=== PATIENT | female | born 1965 | race Two or more races ===

== ENCOUNTER 2016-09-15 14:23 | Emergency (ER) | payer MEDICAID ==
[2016-09-15 14:48] VITALS: BP 170/101; TEMP 98.4; O2SAT 96
--- NOTE | 2016-09-15 16:03 | EDPHY ---
H & P Time Seen by Provider: 09/15/16 15:45 HPI/ROS: CHIEF COMPLAINT: Right eye irritation HISTORY OF PRESENT ILLNESS: 51-year-old female presents to the emergency department with irritation to her right eye. The patient noted mattering and discharge from her right eye just this morning. 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 She denies visual changes. Denies symptoms in the left eye. Denies URI symptoms. ROS: Denies double vision, blurry vision, foreign body sensation. Past Medical/Surgical History: Hypertension, fibroids Social History: Divorce and lives in [place] Smoking Status: Light smoker Physical Exam: On examination the patient has mild conjunctival injection noted to the right eye. She has an internal or ill noted at the right inferior lateral lower eyelid. No evidence of retained foreign body. Pupils are equal and round and reactive. There is minimal swelling to the right inferior eyelid. There is no surrounding redness or anything to suggest periorbital cellulitis. No pain with palpation over the globe. No palpable bony tenderness. Constitutional: Initial Vital Signs Temperature (C) 36.9 C 09/15/16 14:45 Heart Rate 114 H 09/15/16 14:45 Respiratory Rate 16 09/15/16 14:45 Blood Pressure 170/101 H 09/15/16 14:45 O2 Sat (%) 96 09/15/16 14:45 O2 Delivery Mode Room Air Allergies/Adverse Reactions: No Known Allergies Allergy (Verified 01/21/16 13:09) Home Medications: Medication Instructions Recorded Lisinopril 01/21/16 Gentamicin 0.3% [Gentak 0.3% Opht 0.5 inch RTEYE TID #0 opht.oint 09/15/16 Oint] MDM/Departure - [facility] ED Course/Re-evaluation: Clinically I think this patient has internal hordeolum of the right eye. I do not think slit-lamp examination is warranted. Patient was treated with gentamicin ophthalmic ointment and warm compresses. She was encouraged to return or follow up with master hearth technician on-call if she developed any visual changes, increased swelling or redness, fever, or any other concerns. She was comfortable with this plan. - Depart Disposition: Home, Routine, Self-Care Clinical Impression: Hordeolum of lower eyelid Condition: Good Instructions: Rony (ED) Additional Instructions: Warm compresses. Gentamycin ophthalmic ointment apply to right eye 3 times daily for 1 week. Good hand washing as discussed. Return if he developed any visual changes or any other concerns. Prescriptions: Gentamicin 0.3% [Gentak 0.3% Opht Oint] 0.5 inch RTEYE TID #0 opht.oint Referrals: Nadeen Macario MD [Primary Care Provider] - As per Instructions Rene Oconnor MD [Medical Doctor] - 2-3 days, if not improved ( [employer] on-call)
[2016-09-15 16:14] VITALS: PULSE 66; RESP 18
== END 2016-09-15 16:11 | disposition home or self-care (01) ==
DX: H00.012 Hordeolum externum right lower eyelid (principal); I10 Essential (primary) hypertension; F17.200 Nicotine dependence, unspecified, uncomplicated

== ENCOUNTER 2017-01-26 17:28 | Emergency (ER) | payer MEDICAID ==
--- NOTE | 2017-01-26 17:56 | EDPHY ---
H & P Stated Complaint: Bruising to right arm, first noticed Thursday morning. Time Seen by Provider: 01/26/17 17:46 HPI/ROS: CHIEF COMPLAINT: Bruising HISTORY OF PRESENT ILLNESS: Patient is a 51-year-old healthy female who comes to the emergency department complaining of a spontaneous bruise to her right forearm. She 1st noticed it when she woke up 2 days ago. She denies any coagulopathies. She is not on any medications other than losartan. She thought maybe she got bit by a spider. No erythema or swelling. She has not had any other bruises. No joint pain or swelling. She did get a flu shot 1 week ago in her left shoulder. No Procedures or IV's on her right arm. REVIEW OF SYSTEMS: Constitutional: denies: chills, fever, recent illness, recent injury EENTM: denies: blurred vision, double vision, nose congestion Respiratory: denies: cough, shortness of breath Cardiac: denies: chest pain, irregular heart rate, lightheadedness, palpitations Gastrointestinal/Abdominal: denies: abdominal pain, diarrhea, nausea, vomiting, blood streaked stools Genitourinary: denies: dysuria, frequency, hematuria, pain Musculoskeletal: denies: joint pain, muscle pain Skin: See HPI Neurological: denies: headache, numbness, paresthesia, tingling, dizziness, weakness Hematologic/Lymphatic: denies: blood clots, easy bleeding, easy bruising Immunologic/allergic: denies: HIV/AIDS, transplant EXAM: GENERAL: Well-appearing, well-nourished and in no acute distress. HEAD: Atraumatic, normocephalic. EYES: Pupils equal round and reactive to light, extraocular movements intact, sclera anicteric, conjunctiva are normal. ENT: TMs normal, nares patent, oropharynx clear without exudates. Moist mucous membranes. NECK: Normal range of motion, supple without lymphadenopathy or JVD. LUNGS: Breath sounds clear to auscultation bilaterally and equal. No wheezes rales or rhonchi. HEART: Regular rate and rhythm without murmurs, rubs or gallops. ABDOMEN: Soft, nontender, normoactive bowel sounds. No guarding, no rebound. No masses appreciated. BACK: No CVA tenderness, no spinal tenderness, step-offs or deformities EXTREMITIES: Normal range of motion, no pitting or edema. No clubbing or cyanosis. NEUROLOGICAL: Cranial nerves II through XII grossly intact. Normal speech, normal gait. 5/5 strength, normal movement in all extremities, normal sensation PSYCH: Normal mood, normal affect. SKIN: Large dark bruise to right forearm over palmar aspect slightly wrapping over to the dorsal aspect. Does not involve elbow wrist or hand. No tenderness or deformity. No erythema or drainage. Source: Patient Exam Limitations: No limitations - Personal History Current Tetanus Diphtheria and Acellular Pertussis (TDAP): Yes - Medical/Surgical History Hx Asthma: No Hx Chronic Respiratory Disease: No Hx Diabetes: No Hx Cardiac Disease: No Hx Renal Disease: No Hx Cirrhosis: No Hx Alcoholism: No Hx HIV/AIDS: No Hx Splenectomy or Spleen Trauma: No Other PMH: pmh:fibroid, htn. psh: - Family History Significant Family History: No pertinent family hx - Social History Smoking Status: Light smoker Alcohol Use: Sober Drug Use: None Constitutional: Initial Vital Signs Temperature (C) 36.6 C 01/26/17 17:28 Heart Rate 115 H 01/26/17 17:28 Respiratory Rate 18 01/26/17 17:28 Blood Pressure 137/90 H 01/26/17 17:28 O2 Sat (%) 97 01/26/17 17:28 O2 Delivery Mode Room Air Allergies/Adverse Reactions: No Known Allergies Allergy (Verified 01/21/16 13:09) Home Medications: Medication Instructions Recorded Lisinopril 01/21/16 Gentamicin 0.3% [Gentak 0.3% Opht 0.5 inch RTEYE TID #0 opht.oint 09/15/16 Oint] Medical Decision Making ED Course/Re-evaluation: 7:10 p.m. we discussed the lab results which are reassuring. Patient is eager to go home. I advised her to follow up with Hematology further testing especially of her bruise progresses or she has more bruising. She understands and agrees with this plan. She declines further workup or testing at this time. Differential Diagnosis: Partial list of the Differential diagnosis considered include but were not limited to; contusion, bleeding disorder, anemia and although unlikely based on the history and physical exam, I also considered trauma, infection, snake bite, DVT, ischemia, dissection, aneurysm. I discussed these differential diagnoses and the plan with the patient as well as the usual and expected course. The patient understands that the diagnosis is provisional and that in medicine we are not always correct and that further workup is often warranted. Usual and customary warnings were given. All of the patient's questions were answered. The patient was instructed to return to the emergency department should the symptoms at all worsen or return, otherwise to followup with the physician as we discussed. - Data Points Laboratory Results: Laboratory Results 01/26/17 18:17 01/26/17 18:17 01/26/17 01/26/17 01/26/17 18:17 18:17 18:17 WBC 7.03 10^3/uL 10^3/uL (3.80-9.50) RBC 3.93 10^6/uL L 10^6/uL (4.18-5.33) Hgb 14.4 g/dL g/dL (12.6-16.3) Hct 41.0 % % (38.0-47.0) MCV 104.3 fL H fL (81.5-99.8) MCH 36.6 pg H pg (27.9-34.1) MCHC 35.1 g/dL g/dL (32.4-36.7) RDW 13.7 % % (11.5-15.2) Plt Count 223 10^3/uL 10^3/uL (150-400) MPV 8.9 fL fL (8.7-11.7) Neut % (Auto) 68.4 % % (39.3-74.2) Lymph % (Auto) 23.5 % % (15.0-45.0) Garden % (Auto) 5.8 % % (4.5-13.0) Eos % (Auto) 1.6 % % (0.6-7.6) Baso % (Auto) 0.4 % % (0.3-1.7) Nucleat RBC Rel Count 0.0 % % (0.0-0.2) Absolute Neuts (auto) 4.81 10^3/uL 10^3/uL (1.70-6.50) Absolute Lymphs (auto) 1.65 10^3/uL 10^3/uL (1.00-3.00) Absolute Monos (auto) 0.41 10^3/uL 10^3/uL (0.30-0.80) Absolute Eos (auto) 0.11 10^3/uL 10^3/uL (0.03-0.40) Absolute Basos (auto) 0.03 10^3/uL 10^3/uL (0.02-0.10) Absolute Nucleated RBC 0.00 10^3/uL 10^3/uL (0-0.01) Immature Gran % 0.3 % % (0.0-1.1) Immature Gran # 0.02 10^3/uL 10^3/uL (0.00-0.10) PT 12.9 SEC SEC (12.0-15.0) INR 0.98 (0.83-1.16) APTT 24.6 SEC SEC (23.0-38.0) Sodium 139 mEq/L mEq/L (134-144) Potassium 3.6 mEq/L mEq/L (3.5-5.2) Chloride 98 mEq/L mEq/L (97-110) Carbon Dioxide 27 mEq/l mEq/l (22-31) Anion Gap 14 mEq/L mEq/L (8-16) BUN 14 mg/dL mg/dL (7-23) Creatinine 0.6 mg/dL mg/dL (0.6-1.0) Estimated GFR > 60 Glucose 155 mg/dL H mg/dL (70-100) Calcium 9.8 mg/dL mg/dL (8.5-10.4) Departure - Departure Disposition: Home, Routine, Self-Care Clinical Impression: Bruising Condition: Fair Instructions: Contusion in Adults (ED) Referrals: Nadeen Macario MD [Primary Care Provider] - As per Instructions
[2017-01-26 18:28] LABS: % IMMATURE GRANULYOCYTES 0.3 % (0.0-1.1); ABSOLUTE IMMATURE GRANULOCYTES 0.02 10^3/uL (0.00-0.10); ADD DIFF? NO; ADD MORPH? NO; ADD SCAN? NO; ATYPICAL LYMPHOCYTE FLAG 0 (0-99); FRAGMENT RBC FLAG 0 (0-99); HEMOGLOBIN 14.4 g/dL (12.6-16.3); LEFT SHIFT FLG 0 (0-99); LIPEMIA HEMOLYSIS FLAG 90 (0-99); MEAN CELL HEMOGLOBIN 36.6 pg (27.9-34.1); MEAN CELL HEMOGLOBIN CONCENTR. 35.1 g/dL (32.4-36.7); MEAN CELL VOLUME 104.3 fL (81.5-99.8); MEAN PLATELET VOLUME 8.9 fL (8.7-11.7); PLATELET CLUMPS FLAG 0 (0-99); PLATELET COUNT 223 10^3/uL (150-400); RED BLOOD CELL COUNT 3.93 10^6/uL (4.18-5.33); RED CELL DISTRIBUTION WIDTH 13.7 % (11.5-15.2)
[2017-01-26 18:38] LABS: INR 0.98 (0.83-1.16); PROTIME(PATIENT) 12.9 SEC (12.0-15.0)
[2017-01-26 18:39] LABS: APTT 24.6 SEC (23.0-38.0)
[2017-01-26 18:45] LABS: ANION GAP 14 mEq/L (8-16); CALCIUM 9.8 mg/dL (8.5-10.4); CARBON DIOXIDE 27 mEq/l (22-31); CHLORIDE 98 mEq/L (97-110); CREATININE 0.6 mg/dL (0.6-1.0); GLOMERULAR FILTRATION RATE > 60; GLUCOSE 155 mg/dL (70-100); POTASSIUM 3.6 mEq/L (3.5-5.2); SODIUM 139 mEq/L (134-144)
[2017-01-26 19:43] VITALS: BP 138/103; PULSE 108; RESP 16; TEMP 98.8; O2SAT 94
== END 2017-01-26 19:41 | disposition home or self-care (01) ==
DX: M79.81 Nontraumatic hematoma of soft tissue (principal); F17.200 Nicotine dependence, unspecified, uncomplicated; I10 Essential (primary) hypertension

== ENCOUNTER 2017-04-23 19:54 | Emergency (ER) | payer MEDICAID ==
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
[2017-04-23 20:31] VITALS: BP 144/74; PULSE 88; RESP 20; O2SAT 100
== END 2017-04-23 20:35 ==
LOC: EDUNIT#
DX: F10.921 Alcohol use, unspecified with intoxication delirium (principal); F91.9 Conduct disorder, unspecified; F17.200 Nicotine dependence, unspecified, uncomplicated

== ENCOUNTER 2017-04-27 19:29 | Emergency (ER) | payer MEDICAID ==
[2017-04-27 19:33] VITALS: O2SAT 97
--- NOTE | 2017-04-27 20:32 | EDPHY ---
HPI/HX/ROS/PE/MDM Narrative: CHIEF COMPLAINT: Rash HISTORY OF PRESENT ILLNESS: This patient is a 51 year old female complaining of a full body rash onset yesterday. evening, she spent the evening in fdc, and returned home Thursday evening. Thursday, she noted small mildly itchy bumps all over her body. Today, she developed additional bumps around her buttocks which are painful. Additionally, she woke today with a sore left eye. Her right eye began hurting around 3pm as well, and she is concerned regarding pinkeye. She is also concerned she may have contracted an infection or infestation from the bedding the fdc. No fever chills, chest pain, shortness of breath, palpitations, vomiting, diarrhea, urinary complaints, headache, lightheadedness. REVIEW OF SYSTEMS: Aside from elements discussed in the HPI, a comprehensive 10-point review of systems was reviewed and is negative. PAST MEDICAL HISTORY: Hypertension. SOCIAL HISTORY: Lives in [place]. Works for [employer]. PCP Dr. Macario. VITAL SIGNS: Reviewed by me GENERAL: Well-developed, well-nourished, resting comfortably in no respiratory distress. HEENT: Atraumatic. Eyes: Stye on lower left eyelid. No icterus, no injection. Mouth: moist mucous membranes. No erythema or lesions. Neck: supple with no adenopathy. LUNGS: Clear to auscultation bilaterally, no wheezes, rhonchi or rales. CARDIAC: Regular rate and rhythm, no rubs, murmurs or gallops. ABDOMEN: Soft, nontender, nondistended, bowel sounds normal. BACK: No CVA tenderness. EXTREMITIES: No trauma. No edema. Range of motion is normal throughout. NEURO: Alert and oriented, grossly nonfocal. SKIN: Scattered papular, small, discrete eruption. No linear excoriations. No purulent or pustular lesions. Lesions are on trunk, buttocks, and neck. No intertriginous lesions. Skin is warm and dry, no petechiae. PSYCHIATRIC: Normal mentation, no agitation. Portions of this note were transcribed by a medical planner. I personally performed a history, physical exam, medical decision making, and confirmed accuracy of information the transcribed note. ED Course: 51 y/o female presents with a scattered maculopapular rash on trunk, buttocks, and neck. Patient's concern is may represent scabies. She does not have classic linear excoriations and the rash is not particularly itchy, however, she does report spending the night in an environment which may have had scabies. I will have the patient use a scabies cream and if this does not improve the rash will place her on Keflex for folliculitis. Rash does not appear to be bed bugs to me. Patient was also instructed on warm compresses a given ofloxacin for the treatment of her lower eyelid stye. Follow up and return precautions discussed. She is comfortable with this plan. MDM: Differential diagnosis of the patient's rash was considered including but not limited to allergic reaction, urticaria, viral exanthem, scabies, folliculitis, petechial rash, cellulitis. General Time Seen by Provider: 04/27/17 20:17 Initial Vital Signs: Initial Vital Signs Temperature (C) 36.8 C 04/27/17 19:32 Heart Rate 108 H 04/27/17 19:32 Respiratory Rate 16 04/27/17 19:32 Blood Pressure 181/110 H 04/27/17 19:32 O2 Sat (%) 97 04/27/17 19:32 O2 Delivery Mode Room Air Allergies/Adverse Reactions: No Known Allergies Allergy (Verified 04/23/17 20:29) Home Medications: Medication Instructions Recorded Cephalexin [Keflex (*)] 500 mg PO QID 7 Days cap 04/27/17 Permethrin 5% [Elimite 5%] 60 gm TP ONCE 1 Days cream 04/27/17 Departure - Departure Disposition: Home, Routine, Self-Care Clinical Impression: Rash Condition: Good Instructions: Ofloxacin (Into the eye), Acute Rash (ED) Additional Instructions: 1. Wash all of your clothing and bedding on the hottest setting. 2. Use Elemite as directed. If your symptoms do not resolve with this, take Keflex as prescribed. 3. Return to the emergency department for fever, worsening pain, changes in vision, or other worsening of condition. 4. Follow up with your primary care provider this week for further evaluation. 5. Take Benadryl as directed on the packaging as needed for itching. 6. Use the eyedrops as recommended. 7. Warm compresses to the left eye will also help the sty resolve sooner. Referrals: Nadeen Macario MD [Primary Care Provider] - As per Instructions Prescriptions: Cephalexin [Keflex (*)] 500 mg PO QID 7 Days cap Permethrin 5% [Elimite 5%] 60 gm TP ONCE 1 Days cream Report Scribed for: Doris Patterson Report Scribed by: Lizzy Cee Date of Report: 04/27/17 Time of Report: 20:33
[2017-04-27] MEDS ORDERED: OFLOXACIN 0.3% SOLN PREPACK OPHT.BTL TAKEHOME ONE ×2 (20:52→20:53)
[2017-04-27 20:55] VITALS: BP 158/98; PULSE 100; RESP 18; TEMP 98.6
== END 2017-04-27 20:55 | disposition home or self-care (01) ==
DX: R21 Rash and other nonspecific skin eruption (principal); I10 Essential (primary) hypertension

== ENCOUNTER 2017-07-23 18:17 | Emergency (ER) | payer MEDICAID ==
[2017-07-23] MEDS ORDERED: NS 1,000 ML IV ONE ×2 (19:04)
[2017-07-23] MEDS ORDERED: ONDANSETRON 4 MG/2 ML VIAL IVP ONE (19:04)
--- NOTE | 2017-07-23 19:06 | EDPHY ---
H & P Stated Complaint: NAUSEA /DIARRHEA X 2 DAYS (WAS ABLE TO WORK TODAY) Time Seen by Provider: 07/23/17 18:57 HPI/ROS: CHIEF COMPLAINT: Nausea, diarrhea HISTORY OF PRESENT ILLNESS: Patient is a 51-year-old female who comes to the emergency department complaining of nausea but no vomiting and diarrhea nonbloody for the last 4 days. No travel. No fever. She states that she did not go to work Thursday or Thursday but did go to work today. 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 She states that she now feels tired and dehydrated. She denies . No history of abdominal surgery. No abdominal pain. REVIEW OF SYSTEMS: Constitutional: denies: chills, fever, recent illness, recent injury EENTM: denies: blurred vision, double vision, nose congestion Respiratory: denies: cough, shortness of breath Cardiac: denies: chest pain, irregular heart rate, lightheadedness, palpitations Gastrointestinal/Abdominal: See HPI Genitourinary: denies: dysuria, frequency, hematuria, pain Musculoskeletal: denies: joint pain, muscle pain Skin: denies: lesions, rash, jaundice, bruising Neurological: denies: headache, numbness, paresthesia, tingling, dizziness, weakness Hematologic/Lymphatic: denies: blood clots, easy bleeding, easy bruising Immunologic/allergic: denies: HIV/AIDS, transplant EXAM: GENERAL: Well-appearing, well-nourished and in no acute distress. HEAD: Atraumatic, normocephalic. EYES: Pupils equal round and reactive to light, extraocular movements intact, sclera anicteric, conjunctiva are normal. ENT: TMs normal, nares patent, oropharynx clear without exudates. Moist mucous membranes. NECK: Normal range of motion, supple without lymphadenopathy or JVD. LUNGS: Breath sounds clear to auscultation bilaterally and equal. No wheezes rales or rhonchi. HEART: Regular rate and rhythm without murmurs, rubs or gallops. ABDOMEN: Soft, nontender, normoactive bowel sounds. No guarding, no rebound. No masses appreciated. BACK: No CVA tenderness, no spinal tenderness, step-offs or deformities EXTREMITIES: Normal range of motion, no pitting or edema. No clubbing or cyanosis. NEUROLOGICAL: Cranial nerves II through XII grossly intact. Normal speech, normal gait. 5/5 strength, normal movement in all extremities, normal sensation PSYCH: Normal mood, normal affect. SKIN: Warm, dry, normal turgor, no visible rashes or lesions. Source: Patient Exam Limitations: No limitations - Personal History LMP (Females 10-55): Irregular Current Tetanus/Diphtheria Vaccine: Yes - Medical/Surgical History Hx Asthma: No Hx Chronic Respiratory Disease: No Hx Diabetes: No Hx Cardiac Disease: No Hx Renal Disease: No Hx Cirrhosis: No Hx Alcoholism: No Hx HIV/AIDS: No Hx Splenectomy or Spleen Trauma: No Other PMH: pmh:fibroid, htn. psh: - Family History Significant Family History: No pertinent family hx - Social History Smoking Status: Light smoker Alcohol Use: Sober Drug Use: None Constitutional: Initial Vital Signs Temperature (C) 36.8 C 07/23/17 18:20 Heart Rate 96 07/23/17 18:20 Respiratory Rate 18 07/23/17 18:20 Blood Pressure 142/115 H 07/23/17 18:20 O2 Sat (%) 96 07/23/17 18:20 O2 Delivery Mode Room Air Allergies/Adverse Reactions: No Known Allergies Allergy (Verified 07/23/17 18:19) Home Medications: Medication Instructions Recorded Lisinopril 07/23/17 Medical Decision Making ED Course/Re-evaluation: 7:50 p.m. patient is doing well. Her nausea is resolved. She is receiving IV fluids. Abdominal exam remains benign. 8:30 p.m. the patient continues to do well. Her abdominal exam is benign. Fluids arm was done. She is eager to go. Differential Diagnosis: Partial list of the Differential diagnosis considered include but were not limited to; gastroenteritis, dehydration, food poisoning and although unlikely based on the history and physical exam, I also considered appendicitis, biliary disease, torsion, urinary tract infection, cyst. I discussed these differential diagnoses and the plan with the patient as well as the usual and expected course. The patient understands that the diagnosis is provisional and that in medicine we are not always correct and that further workup is often warranted. Usual and customary warnings were given. All of the patient's questions were answered. The patient was instructed to return to the emergency department should the symptoms at all worsen or return, otherwise to followup with the physician as we discussed. - Data Points Medications Given: Discontinued Medications Sodium Chloride (Ns) 1,000 mls @ 0 mls/hr IV EDNOW ONE; Wide Open PRN Reason: Protocol Stop: 07/23/17 19:05 Last Admin: 07/23/17 19:14 Dose: 1,000 mls Sodium Chloride (Ns) 1,000 mls @ 0 mls/hr IV EDNOW ONE; Wide Open PRN Reason: Protocol Stop: 07/23/17 19:05 Last Admin: 07/23/17 19:19 Dose: 1,000 mls Ondansetron HCl (Zofran) 4 mg IVP EDNOW ONE Stop: 07/23/17 19:05 Last Admin: 07/23/17 19:15 Dose: 4 mg Departure - Departure Disposition: Home, Routine, Self-Care Clinical Impression: Acute gastroenteritis, Dehydration Condition: Fair Instructions: Dehydration (ED), Gastroenteritis (ED) Referrals: Nadeen Macario MD [Primary Care Provider] - As per Instructions
[2017-07-23 20:49] VITALS: BP 149/80
== END 2017-07-23 20:57 | disposition home or self-care (01) ==
DX: K52.9 Noninfective gastroenteritis and colitis, unspecified (principal); E86.0 Dehydration; E86.9 Volume depletion, unspecified; F17.200 Nicotine dependence, unspecified, uncomplicated; I10 Essential (primary) hypertension
CPT/HCPCS: 96374; J2405

== ENCOUNTER 2017-08-28 08:54 | Emergency (ER) | payer MEDICAID ==
--- NOTE | 2017-08-28 09:22 | EDPHY ---
H & P Time Seen by Provider: 08/28/17 09:11 HPI/ROS: CHIEF COMPLAINT: Recurrent cyst right axilla HISTORY OF PRESENT ILLNESS: 51-year-old immunocompetent female history of recurrent sebaceous cyst in the right axilla that has become recently erythematous tender and fluctuant. She has had previous incision and drainage of this. No fever no chills no nausea no vomiting. Tetanus up-to-date. PHYSICAL EXAM (Prior to examination, patient consented to physical exam, hands were washed and my usual and customary physical exam procedures followed) 1) GENERAL: Well-developed, well-nourished, alert and oriented. Appears to be in no acute distress. 2) HEAD: Normocephalic 3) HEENT: sclera anicteric 4) LUNGS: Breathing comfortably. 5) SKIN: Right axilla: Patient has in erythematous indurated fluctuant mass consistent with infected sebaceous cyst in abscess. 6) MUSCULOSKELETAL: Soft compartments no erythema no crepitus. Smoking Status: Light smoker Constitutional: Initial Vital Signs Temperature (C) 36.5 C 08/28/17 08:56 Heart Rate 93 08/28/17 08:56 Respiratory Rate 17 08/28/17 08:56 Blood Pressure 146/102 H 08/28/17 08:56 O2 Sat (%) 97 08/28/17 08:56 O2 Delivery Mode Room Air Allergies/Adverse Reactions: No Known Allergies Allergy (Verified 08/28/17 08:55) Home Medications: Medication Instructions Recorded Lisinopril 07/23/17 Cephalexin [Keflex] 500 mg PO TID 10 Days cap 08/28/17 Ibuprofen [Motrin (*)] 800 mg PO Q6 #15 tab 08/28/17 MDM/Departure - MDM Procedures: Procedure: Abscess drainage. The patient's abscess was located on the right axilla. I obtained verbal consent from the patient to drain the abscess who was informed about the possibility of bleeding and pain. The abscess was incised with a 15. scalpel and a moderate amount of purulent drainage and sebum was expressed. I irrigated the wound and placed some packing. The patient tolerated the procedure well. The procedure was performed by myself. ED Course/Re-evaluation: Care of patient under supervision of secondary supervising physician Dr Snyder . This patient has infected sebaceous cyst which was incised and drained in the ER. She notes that this has been a recurrent issue. At this time incision drainage performed, started on antibiotics, monotherapy with Keflex as she has no history of MRSA. Recommend follow up with primary care provider and also given general surgery information for long-term therapy.. - Depart Disposition: Home, Routine, Self-Care Clinical Impression: Infected sebaceous cyst of skin Condition: Good Instructions: Cyst (ED) Additional Instructions: Return to the ER if you develop redness, swelling, discharge, warmth to the wound, fevers, or any other symptoms that concern you. Prescriptions: Cephalexin [Keflex] 500 mg PO TID 10 Days cap Ibuprofen [Motrin (*)] 800 mg PO Q6 #15 tab Referrals: Nadeen Macario MD [Primary Care Provider] - 2-3 days, call for appt. Trip Prado MD [Medical Doctor] - 5-7 days, call for appt. (Dr. Prado is a general surgeon)
[2017-08-28 09:42] VITALS: BP 153/106
== END 2017-08-28 09:41 | disposition home or self-care (01) ==
PROC: 0H9BXZZ Drainage of Right Upper Arm Skin, External Approach (ICD-10-PCS; principal; 2017-08-28)
DX: L72.3 Sebaceous cyst (principal); F17.200 Nicotine dependence, unspecified, uncomplicated

== ENCOUNTER 2018-02-08 19:37 | Emergency (ER) | payer MEDICAID ==
[2018-02-08] MEDS ORDERED: IBUPROFEN 600 MG TAB PO ONE (20:27)
--- NOTE | 2018-02-08 21:02 | EDPHY ---
General - History Smoking Status: Former smoker Time Seen by Provider: 02/08/18 20:34 Narrative: CHIEF COMPLAINT: Fall, knee pain, clavicle pain HISTORY OF PRESENT ILLNESS: Patient presents with complaints of left knee and right clavicle pain after fall. She states that she was running for the bus earlier this afternoon when she tripped and fell. She states she landed on both of her knees and on outward stretched right hand. She complains of moderate to severe pain in the left knee, mild pain in the right knee, and [id number] pain in the right clavicle. She states that she has abrasions that are non concerning on both knees. Pain in the right clavicle is worse palpation movement. It is an area that she has injury to the past and she feels as though it may be no chest pain. No shortness of breath. No difficulty breathing. No head, neck, back or abdominal injuries. Tetanus is up-to-date. The pain left knees with palpation and movement. Does not radiate. No numbness tingling. No weakness. No other associated complaints or modifying factors. ESTABLISHED ORTHOPEDIST: None REVIEW OF SYSTEMS: Ten systems reviewed and are negative unless otherwise noted in the HPI PAST MEDICAL HISTORY: Hypertension, uterine fibroids, postmenopausal PAST SURGICAL HISTORY: No recent surgical history SOCIAL HISTORY: Quit smoking 1 month ago. Denies drug or alcohol use. 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 Atraumatic. Pupils equal round reactive. Airway widely patent. Neck: Supple nontender. No crepitus or deformity. Cardiovascular: Symmetric radial pulses 2+. Symmetric DP pulses 2+. Neurological: A&O, light sensory symmetric upper and lower extremities. Excellent and symmetric shank cementer hand strength and ankle of the ankles and knees. Skin: Warm and dry, no rash. Superficial abrasions to bilateral anterior knees , approximately 2 cm x 2 cm on each knee. No laceration or puncture. No intra- articular communication. Extremities: Tenderness of the right clavicle without crepitus. There is mild deformity on the sternoclavicular side that is reportedly chronic. There is bony tenderness of the left patella without tenderness of the right patella. Mild tenderness bilateral joint line on the left knee. Range of motion symmetric in the upper lower extremities. All compartments are soft on the upper lower extremities. Psychiatric: Mood and affect normal DIFFERENTIAL DIAGNOSES: Including but not limited to patellar fracture, knee sprain, knee strain, clavicle fracture, sternoclavicular sprain, contusion, hematoma, abrasions MDM: 8:35 p.m. Blunt trauma with pain in the left knee in the right clavicle after a fall while running. She has no head injury. She has no chest, back or abdominal injury. She does have superficial abrasions to both knees. She has tenderness of the left knee greater than the right. I do feel she warrants imaging of the left knee in the right clavicle. She is in no acute distress. Vital signs stable. 10:00 p.m. X-rays of the clavicle and knee reveal no acute findings. Degenerative changes noted. I have reviewed her previous x-ray, and this appears to be consistent with her current regarding the clavicle. We discuss Vitaly wrap, ice, elevation. We discussed anti-inflammatories and follow up with primary care physician or Orthopedics for definitive care. I have answered all her questions. She is ambulatory. Well-appearing. Discharged home stable condition SUPERVISION: This patient was independently evaluated without direct involvement of or examination by the attending physician. (Demetrio Christensen) Medical Decision Making: I did not see this patient while she was in the emergency department. However her care was discussed with PA while patient was in the department. I agree with treatment plan and management (Clint Jacobson) - Diagnostics Imaging Results: Imaging Impressions Clavicle X-Ray 02/08/18 20:26 Impression: 1. Significant degenerative arthritis of the right acromioclavicular joint. 2. Query mild medial sternoclavicular subluxation. If clinically indicated, a designated bilateral sternoclavicular view can be performed for comparison with the contralateral side. Knee X-Ray 02/08/18 20:26 Impression: Osteoarthritis. Nothing acute radiographically. - Objective Vital Signs: Initial Vital Signs Temperature (C) 36.5 C 02/08/18 19:50 Heart Rate 100 02/08/18 19:50 Respiratory Rate 16 02/08/18 19:50 Blood Pressure 145/94 H 02/08/18 19:50 O2 Sat (%) 96 02/08/18 19:50 O2 Delivery Mode Room Air Allergies/Adverse Reactions: No Known Allergies Allergy (Verified 08/28/17 08:55) Home Medications: Medication Instructions Recorded Lisinopril 07/23/17 Medications Given: Discontinued Medications Ibuprofen (Motrin) 600 mg PO EDNOW ONE Stop: 02/08/18 20:28 Last Admin: 02/08/18 20:35 Dose: 600 mg Departure - Departure Disposition: Home, Routine, Self-Care Clinical Impression: Abrasions of multiple sites Knee contusion Qualifiers: Encounter type: initial encounter Laterality: left Qualified Code(s): S80.02XA - Contusion of left knee, initial encounter Sprain of knee/leg Qualifiers: Encounter type: initial encounter Laterality: left Qualified Code(s): S83.92XA - Sprain of unspecified site of left knee, initial encounter Condition: Good Instructions: Knee Sprain (ED), Abrasion (ED) Additional Instructions: 1. Medications as discussed as needed, including ibuprofen 600mg every 8 hours as needed. Do not take in conjunction with anticoagulants or other NSAIDs 2. Follow up with Orthopedics for definitive care 3. Rest, ice and elevation often. 4. ED precautions as discussed for worsening pain, redness, fever, changes in range of motion, changes in sensation Referrals: Nadeen Macario MD [Primary Care Provider] - As per Instructions [place] MD [Medical Doctor] - As per Instructions
[2018-02-08 22:32] VITALS: BP 142/90
== END 2018-02-08 22:32 | disposition home or self-care (01) ==
DX: S83.92XA Sprain of unspecified site of left knee, initial encounter (principal); S80.02XA Contusion of left knee, initial encounter; S43.201A Unspecified subluxation of right sternoclavicular joint, initial encounter; M19.011 Primary osteoarthritis, right shoulder; M17.12 Unilateral primary osteoarthritis, left knee; I10 Essential (primary) hypertension; W01.0XXA Fall on same level from slipping, tripping and stumbling without subsequent striking against object, initial encounter; Z87.891 Personal history of nicotine dependence

== ENCOUNTER 2018-04-12 15:44 | Emergency (ER) | payer MEDICAID ==
--- NOTE | 2018-04-12 16:11 | EDPHY ---
H & P Time Seen by Provider: 04/12/18 16:08 HPI/ROS: HPI: This is a 52-year-old female who presents with Chief Complaint: Right big toe pain Location: Right big toe Quality: Pain, redness Duration: Since this morning Signs and Symptoms: No bleeding, no radiation, no numbness, no weakness, no tingling, no incontinence, no decreased range of motion, + swelling, + pain, no fever, + skin color changes Timing: Acute, constant Severity: 11/13 Context: Patient has a history of hypertension, followed by the [facility] , presents with waking up this morning and her right big toe being red, painful and mild swelling. She reports constant, moderate, nonradiating pain. She reports pain is worsened with weight-bearing. She denies any injury or trauma. She reports that she does eat lunch meats, sausage, high quite frequently. She is adopted does not know her family history. Denies radiation, weakness, paresthesias. Patient reports that she had labs within the last 3 [facility] and were unremarkable per the patient. No history of kidney disease. Modifying Factors: None no [id number] medications tried. Comment: ROS: A comprehensive 10 system review of systems is otherwise negative aside from elements mentioned in the history of present illness. MEDICAL/SURGICAL/SOCIAL HISTORY: Medical history: Hypertension, fibroids Surgical history: Denies Social history: Former smoker. CONSTITUTIONAL: Polite and cooperative, well-developed and well-nourished adult female, awake and alert, no obvious distress HEENT: Atraumatic and normocephalic. NECK: supple EXTREMITIES: 2/2 pedal pulses, strength 5/5, right big toe is mildly red, warm , tender to touch. No fluctuance appreciated. DIP/PIP/MCP flexion/extension intact with good light touch sensation. no deformities, no clubbing, no cyanosis or edema. NEUROLOGICAL: no focal neuro deficits. GCS 15. Light touch sensation intact. SKIN: Warm and dry, no erythema. no rash. Good capillary refill. Source: Patient Exam Limitations: No limitations - Medical/Surgical History Hx Asthma: No Hx Chronic Respiratory Disease: No Hx Diabetes: No Hx Cardiac Disease: No Hx Renal Disease: No Hx Cirrhosis: No Hx Alcoholism: No Hx HIV/AIDS: No Hx Splenectomy or Spleen Trauma: No Other PMH: pmh:fibroid, htn. psh: - Social History Smoking Status: Former smoker Allergies/Adverse Reactions: No Known Allergies Allergy (Verified 08/28/17 08:55) Home Medications: Medication Instructions Recorded Lisinopril 07/23/17 Melatonin 04/12/18 Tumeric 04/12/18 oxyCODONE/APAP 5/325 [Percocet 1 - 2 tab PO Q4H PRN #10 tab 04/12/18 5/325 (*)] predniSONE 50 mg PO DAILY 5 Days tablet 04/12/18 Medical Decision Making Procedures: Procedure: Splint placement. Crutches were applied by the Emergency Room solar fabrication technician. After application of the splint I returned and re-examined the patient. The splint was adequately immobilizing the joint and distal to the splint the patient's circulation and sensation was intact. ED Course/Re-evaluation: Vital signs reviewed and show elevated blood pressure upon arrival. Patient had recent labs and showed a normal creatinine 0.6 in June at this [facility] and [facility] with no need to repeat laboratory studies. X-ray imaging is not needed as no acute trauma/injury. Patient given colchicine 1.2 mg, prednisone 60 mg and Percocet x1 Patient provided crutches to limit use of right lower extremity. Patient will follow up with [facility] as needed. No signs of neurovascular compromise/tenting of skin/compartment syndrome/ extremities and joints examined above and below area of concern and are neurovascularly intact. This patient was seen under the supervision of my secondary supervising physician. I evaluated care for this patient independently. Differential Diagnosis: Differential diagnosis includes but is not limited to tenosynovitis, cellulitis , abscess, paronychia, subungual hematoma, gouty arthropathy. Departure - Departure Disposition: Home, Routine, Self-Care Clinical Impression: Podagra, Acute gouty arthropathy Condition: Good Instructions: Gout (ED), Low Purine Diet (ED) Additional Instructions: Take Tylenol 650 mg every 4 hours and/or Ibuprofen 600 mg every 8 hours with food as needed for pain. Use Percocet every 6 hours as needed for severe/break through pain. Do not use Tylenol and Percocet concomitantly. Take prednisone burst as directed. Limit use of right foot until pain free. Use crutches to aid ambulation. Follow low purine diet. Follow up with PCP in 4-5 days if no improvement. Referrals: Nadeen Macario MD [Primary Care Provider] - 3-4 days, if not improved Prescriptions: oxyCODONE/APAP 5/325 [Percocet 5/325 (*)] 1 - 2 tab PO Q4H PRN #10 tab PRN Reason: Pain, Severe predniSONE 50 mg PO DAILY 5 Days tablet
[2018-04-12] MEDS ORDERED: predniSONE 20 MG TAB PO ONE (16:12)
[2018-04-12] MEDS ORDERED: COLCHICINE 0.6 MG CAP/TAB PO ONE (16:12)
[2018-04-12] MEDS ORDERED: OXYCODONE/APAP 5/325 TAB PO ONE (16:12)
[2018-04-12 16:35] VITALS: BP 158/89
== END 2018-04-12 16:39 | disposition home or self-care (01) ==
DX: M10.9 Gout, unspecified (principal)
CPT/HCPCS: J7512

== ENCOUNTER 2018-08-17 19:14 | Emergency (ER) | payer MEDICAID ==
[2018-08-17 19:18] VITALS: BP 144/92
--- NOTE | 2018-08-17 19:30 | EDPHY ---
H & P Stated Complaint: right leg pain no injury Time Seen by Provider: 08/17/18 19:30 - Personal History LMP (Females 10-55): Post Menopausal Current Tetanus/Diphtheria Vaccine: Yes Current Tetanus Diphtheria and Acellular Pertussis (TDAP): Yes - Medical/Surgical History Hx Asthma: No Hx Chronic Respiratory Disease: No Hx Diabetes: No Hx Cardiac Disease: No Hx Renal Disease: No Hx Cirrhosis: No Hx Alcoholism: No Hx HIV/AIDS: No Hx Splenectomy or Spleen Trauma: No Other PMH: pmh:fibroid, htn. psh: - Social History Smoking Status: Former smoker Constitutional: Initial Vital Signs Temperature (C) 37.1 C 08/17/18 19:15 Heart Rate 88 08/17/18 19:15 Respiratory Rate 16 08/17/18 19:15 Blood Pressure 144/92 H 08/17/18 19:15 O2 Sat (%) 97 08/17/18 19:15 O2 Delivery Mode Room Air Allergies/Adverse Reactions: No Known Allergies Allergy (Verified 08/17/18 19:18) Home Medications: Medication Instructions Recorded Lisinopril 07/23/17 Melatonin 04/12/18 Ibuprofen [Motrin] 800 mg PO Q8 #20 tab 08/17/18 methylPREDNISolone [Medrol Dose 1 each PO AD #1 ea 08/17/18 [place]] oxyCODONE IR [Oxycodone Ir (*)] 5 mg PO Q4-6PRN PRN #20 tab 08/17/18 Medical Decision Making ED Course/Re-evaluation: CHIEF COMPLAINT: Right leg pain and numbness HISTORY OF PRESENT ILLNESS: The patient is a 52 y/o female wit a history of hypertension complaining of right leg pain that is exacerbated when she walks. The patient was walking home from work today when she developed the right leg pain that radiates from her buttock, down the calf, and to her foot. Her toes intermittently feel numb. She denies any recent back injury or trauma, but she has had a dull right-sided lower back pain for several days. While lying flat she notices the right back pain more. She denies prior history of back injury. No fever, headache, body aches, lightheadedness, chest pain, heart palpitations, shortness of breath, cough, abdominal pain, urinary or bowel complaints. REVIEW OF SYSTEMS: A comprehensive 10 system review of systems is otherwise negative aside from elements mentioned in the history of present illness and medical decision making. PHYSICAL EXAM: HR, BP, O2 Sat, RR. Temp noted General Appearance: Alert, well hydrated, appropriate, and non-toxic appearing. Head: Atraumatic without scalp tenderness or obvious injury Eyes: Pupils equal, round, reactive to light and accommodation, EOMI, no trauma , no injection. Ears: Clear bilaterally, no perforation, normal landmarks Nose: Atraumatic, no rhinorrhea, clear. Throat: There is no erythema or exudates, no lesions, normal tonsils, mucus membranes moist. Neck: Supple, 2+ carotid upstroke, nontender, no lymphadenopathy. Respiratory: No retractions, no distress, no wheezes, and no accessory muscle use. Lungs are clear to auscultation bilaterally. Cardiovascular: Regular rate and rhythm, no murmurs, rubs, or gallops. Bilateral carotid, radial, dorsalis pedis, and posterior tibial pulses intact. Good capillary refill all extremities. Gastrointestinal: Abdomen is soft, nontender, non-distended, no masses, no rebound, no guarding, no peritoneal signs. Musculoskeletal: Normal active ROM of all extremities, atraumatic. Neurological: Alert, appropriate, and interactive. The patient has normal DTRs and non-focal cranial nerves, motor, sensory, and cerebellar exam. Skin: No rashes, good turgor, no nodules on palpation. Past medical history: Hypertension, fibroids Past surgical history: Denies Family history: Denies Social history: Lives in [place], employed, DIAGNOSTICS/PROCEDURES/CRITICAL CARE TIME: Not indicated. DIFFERENTIAL DIAGNOSIS: The differential diagnosis for the patient's back pain included but was not limited to sciatica, musculoskeletal pain, epidural abscess, herniated disk, spinal fracture, and intra-abdominal causes including urinary system. MEDICAL DECISION MAKING: The patient is a 52 y/o female wit a history of hypertension presenting with right leg pain that is exacerbated when she walks. The right leg pain that radiates from her buttock, down the calf, and to her foot. Her toes intermittently feel numb. She has a normal physical exam, besides her subjective pain. Laboratory and imaging studies are not indicated as I suspect she has right-sided sciatica. I have prescribed her a Medrol Dose Pack, OxyIR, and Motrin for her symptoms. I have also advised her to follow up with a neurosurgeon. Return precautions provided; patient is comfortable with this plan. - Data Points Medications Given: Discontinued Medications Oxycodone/Acetaminophen (Percocet 5/325) 2 tab PO EDNOW ONE Stop: 08/17/18 19:38 Last Admin: 08/17/18 19:48 Dose: 2 tab Oxycodone/Acetaminophen (Percocet 5/325mg Prepack#4) 1 btl TAKEHOME EDNOW ONE Stop: 08/17/18 19:38 Last Admin: 08/17/18 19:48 Dose: 1 btl Prednisone (Prednisone) 60 mg PO EDNOW ONE Stop: 08/17/18 19:37 Last Admin: 08/17/18 19:49 Dose: 60 mg Departure - Departure Disposition: Home, Routine, Self-Care Clinical Impression: Right lumbar radiculopathy, Sciatic leg pain Condition: Good Instructions: Oxycodone/Acetaminophen (By mouth), Sciatica (ED), Lumbar Radiculopathy (ED) Additional Instructions: 1. Take a Medrol Dose pack as prescribed. 2. Take OxyIR as prescribed. 3. Take Motrin as directed. 4. Followup with a drug discovery informatics specialist within one week. You may need further imaging or a steroid injection. 5. Return to the emergency department for severe pain, fever, numbness, difficulty walking, change in location or nature of pain or other concerns. Referrals: Nadeen Macario MD [Primary Care Provider] - As per Instructions Loki Ortiz MD [Medical Doctor] - As per Instructions Prescriptions: Ibuprofen [Motrin] 800 mg PO Q8 #20 tab methylPREDNISolone [Medrol Dose [place]] 1 each PO AD #1 ea oxyCODONE IR [Oxycodone Ir (*)] 5 mg PO Q4-6PRN PRN #20 tab PRN Reason: Pain, Moderate Report Scribed for: Henri Watkins Report Scribed by: Angelita Pink Date of Report: 08/17/18 Time of Report: 19:31
[2018-08-17] MEDS ORDERED: predniSONE 20 MG TAB PO ONE (19:36)
[2018-08-17] MEDS ORDERED: OXYCODONE/APAP 5/325MG PREPACK#4 BTL TAKEHOME ONE (19:37)
[2018-08-17] MEDS ORDERED: OXYCODONE/APAP 5/325 TAB PO ONE (19:37)
== END 2018-08-17 19:52 | disposition home or self-care (01) ==
DX: M54.16 Radiculopathy, lumbar region (principal); I10 Essential (primary) hypertension; Z78.0 Asymptomatic menopausal state; Z87.891 Personal history of nicotine dependence
CPT/HCPCS: J7512

== ENCOUNTER → 2018-08-18 | Outpatient (CLI) | payer MEDICAID | LOC: FIMAGING 08:25 | PROVIDERS: ATTEND Family Medicine | DX: Z12.31 Encounter for screening mammogram for malignant neoplasm of breast (principal) ==